=== PATIENT | female | born 1940 | race Caucasian/White ===

== ENCOUNTER 2017-05-27 14:45 | Emergency (ER) | payer MEDICARE, OTHER ==
[2017-05-27] MEDS ORDERED: Diphtheria,Pertussis(Acell),Tetanus Vaccine 0.5 ML SDV IM ONE (15:23)
--- NOTE | 2017-05-27 15:33 | EDM.PDOC ---
ED HPI GENERAL MEDICAL PROBLEM - General Chief Complaint: Head Injury Stated Complaint: FELL & HIT HEAD Time Seen by Provider: 05/27/17 15:30 Source of Information: Reports: Patient, Family History Limitations: Reports: No Limitations - History of Present Illness INITIAL COMMENTS - FREE TEXT/NARRATIVE: Kimberlee is a 77-year-old female who presents to the emergency department today for evaluation of head injury and scalp laceration. Patient was bending underneath the fifth wheel when she forgot it was there and started up striking the back of her head on the fifth we'll then she fell striking the left parietal region of her scalp on the concrete. Patient denies any loss of consciousness, she does endorse a mild headache but denies any nausea, vomiting , visual changes, confusion. Patient is uncertain of her last tetanus shot. Patient is not on any blood thinners. Patient does endorse generalized neck soreness as well. Onset: Today - Related Data Allergies Allergy/AdvReac Type Severity Reaction Status Date / Time No Known Allergies Allergy Verified 05/27/17 15:00 Home Meds: Home Meds Albuterol [Ventolin HFA] 1 puff .XX 05/27/17 [History] Allopurinol [Zyloprim] 300 mg PO 05/27/17 [History] Ca Car&Hyd/Soy/Cohos/Melatonin [Estroven Nighttime Caplet] 1 each PO 05/27/17 [ History] Fish Oil/DHA/EPA [Fish Oil 1,200 MG] 1 each PO 05/27/17 [History] Hydroxychloroquine [Plaquenil] 200 mg PO ASDIRECTED PRN 05/27/17 [History] L.acidoph,Paracasei, B.lactis [Probiotic] 1 each PO 05/27/17 [History] Levothyroxine 200 mcg PO ACBREAKFAST 05/27/17 [History] Omeprazole Magnesium [Prilosec Otc] 20 mg PO 05/27/17 [History] Tiotropium [Spiriva HandiHaler] 18 mcg .XX 05/27/17 [History] Vit B Comp/C/FA/Iron Sulf/Jenn [Stress Formula with Iron Tab] 1 each PO [History] Vit D3/Folic Acid/B2/B6/B12 [Folgard Tablet] 1 each PO 05/27/17 [History] busPIRone [Buspar] 15 mg PO BID PRN 05/27/17 [History] Past Medical History Respiratory History: Reports: COPD Musculoskeletal History: Reports: Gout Endocrine/Metabolic History: Reports: Hypothyroidism Social & Family History - Caffeine Use Caffeine Use: Reports: Coffee, Tea - Recreational Drug Use Recreational Drug Use: No ED ROS GENERAL - Review of Systems Review Of Systems: ROS reveals no pertinent complaints other than HPI. ED EXAM, HEAD INJURY - Physical Exam Exam: See Below Exam Limited By: No Limitations General Appearance: Alert, WD/WN, No Apparent Distress Head: Normocephalic, Scalp Lacerations (1 mm ), Scalp Tenderness (Mildly posteriorly). No: Scalp Abrasions Nexus Criteria: Posterior, Midline Cervical Tenderness Eyes: Bilateral Eye: EOMI, PERRL Ears: Normal External Exam, Normal TMs Throat/Mouth: Normal Inspection, Normal Oropharynx Neck: Full Range of Motion, Paraspinous Muscle Tender, Tender Midline Respiratory: No Respiratory Distress, Lungs Clear Cardiovascular: Normal Peripheral Pulses, No Murmur Back Exam: Normal Inspection, Full Range of Motion Extremities: Normal Inspection Neurologic: No Motor/Sensory Deficits, Normal Mood/Affect, Oriented x 3 Skin: Normal Color, Warm/Dry - Shilpa Coma Score Best Eye Response ([place]): (4) Open Spontaneously Best Verbal Response ([place]): (5) Oriented Best Motor Response ([place]): (6) Obeys Commands Course - Vital Signs Last Recorded V/S: Last Vital Signs Temp 36.7 C 05/27/17 15:01 Pulse 84 05/27/17 15:01 Resp 17 05/27/17 15:01 BP 161/85 H 05/27/17 15:01 Pulse Ox 95 05/27/17 15:01 Kimberlee is a delightful 77-year-old female who presents to the emergency department today post head injury. Please refer to history of present illness and focused exam. Patient on exam does not exhibit any neural/focal deficits. Patient has a small area of tenderness and surface abrasion to her posterior scalp with no obvious laceration that requires repair. This area was cleaned well by nursing staff. Tetanus was updated here in the emergency department. Given patient's age and accommodation with her trauma, I did elect to obtain a CT scan of her head and neck, these both return fortunately negative. Head injury precautions as well as wound care was discussed in detail with patient and her . Patient can take Tylenol as needed for headache, I did offer her a dose here which she declined. Reasons to return to the emergency department were discussed in detail as well, patient and her are agreeable and were discharged in stable condition. - Orders/Labs/Meds Orders: Active Orders 24 hr Category Date Time Status Vaccines to be Administered [RC] PER UNIT ROUTINE Care 05/27/17 15:23 Active Cervical Spine wo Cont [CT] Stat Exams 05/27/17 15:23 Taken Head wo Cont [CT] Stat Exams 05/27/17 15:23 Taken Meds: Medications Discontinued Medications Generic Name Dose Route Start Last Admin Trade Name Freq PRN Reason Stop Dose Admin Diphtheria/Tetanus/Acell Pertussis 0.5 ml 05/27/17 15:23 05/27/17 15:29 Adacel IM 05/27/17 15:24 0.5 ml .ONCE ONE Administration Departure - Departure Time of Disposition: 16:45 Disposition: Home, Self-Care 01 Condition: Good Clinical Impression: Head injury due to trauma Qualifiers: Encounter type: initial encounter Qualified Code(s): S09.90XA - Unspecified injury of head, initial encounter Scalp abrasion Qualifiers: Encounter type: initial encounter Qualified Code(s): S00.01XA - Abrasion of scalp, initial encounter - Discharge Information Instructions: Head Injury, Adult, [id number], Facial or Scalp Contusion, Easy -to-Read, Post-Concussion Syndrome, [id number] Referrals: Armand Chung Sr, MD [Primary Care Provider] - Forms: ED Department Discharge Additional Instructions: Kimberlee, Try to take it easy the next 24-48 hours. You can take 650 mg of Tylenol every 4 hours as needed for any headache. You can gently wash your hair, the wound on your scalp does not require closure and should heal nicely. Your tetanus shot was updated here today and should be good for the next 10 years. If you experience any worsening symptoms or concerns especially confusion, visual changes, severe headache, or other concerns please return to the emergency department. It was nice meeting both of you, take care and enjoy the rest of your weekend. - My Orders Last 24 Hours: My Active Orders 05/27/17 15:23 Vaccines to be Administered [RC] PER UNIT ROUTINE Cervical Spine wo Cont [CT] Stat Head wo Cont [CT] Stat - Assessment/Plan Last 24 Hours: My Active Orders 05/27/17 15:23 Vaccines to be Administered [RC] PER UNIT ROUTINE Cervical Spine wo Cont [CT] Stat Head wo Cont [CT] Stat
== END 2017-05-27 16:54 | disposition home or self-care (01) ==
LOC: JP.ED 14:45
DX: S01.01XA Laceration without foreign body of scalp, initial encounter (principal); Z23 Encounter for immunization; J44.9 Chronic obstructive pulmonary disease, unspecified; W18.09XA Striking against other object with subsequent fall, initial encounter
CPT/HCPCS: 70450; 72125; 90471; 90715; 99284; 99284-25